=== PATIENT | male | born 1950 | race Caucasian/White ===

== ENCOUNTER → 2016-07-28 | Outpatient (CLI) | payer MEDICARE, OTHER ==
--- NOTE | 2016-07-28 09:51 | RADRPT ---
PROCEDURE: XR Pelvis and left Hip. CLINICAL INDICATION: Pelvic pain. Left hip pain TECHNIQUE: Three views of the pelvis and left hip are available for review. COMPARISON: No prior studies are available for comparison. FINDINGS: Patient is status post bilateral hip arthroplasties. Hardware appears intact. There is no evidence of hardware failure or fracture. No erosions are identified. Alignment is grossly anatomic. The soft tissues are within normal limits IMPRESSION: 1. Bilateral hip arthroplasties with intact hardware in gross anatomic alignment. RPTAT: KK .Roger De Souza MD, MD Date Time Electronically viewed and signed by .Roger De Souza MD, MD on 07/28/2016 09:51 .B/
--- NOTE | 2016-07-28 09:54 | RADRPT ---
PROCEDURE: Left knee series. CLINICAL INDICATION: Left knee pain TECHNIQUE: 4 views of the left knee. COMPARISON: None available FINDINGS: There is normal mineralization and alignment of the left knee. No acute fracture or dislocation is seen. There is subtle medial joint space narrowing. The remainder of joint spaces appear grossly w ell maintained. No definite joint effusion is seen. The soft tissues are within normal limits. IMPRESSION: 1. Subtle degenerative change of the medial joint space of the left knee. 2. Otherwise unremarkable left knee series. RPTAT: KK .Roger De Souza MD, MD Date Time Electronically viewed and signed by .Roger De Souza MD, MD on 07/28/2016 09:54 .B/
== END | disposition home or self-care (01) ==
LOC: HKI 08:45
PROVIDERS: ATTEND Orthopaedic Surgery
DX: M25.552 Pain in left hip (principal); T84.84XA Pain due to internal orthopedic prosthetic devices, implants and grafts, initial encounter; Z96.643 Presence of artificial hip joint, bilateral
CPT/HCPCS: 73502; 73564; G0463